=== PATIENT | female | born 1985 | race African-American/Black ===

== ENCOUNTER 2025-03-20 18:29 | Emergency (ER) | payer BC ==
[~2025-03-20] VITALS: Ht 167.6 cm; Wt 82.0 kg
[2025-03-20 18:32] VITALS: O2SAT 98
[2025-03-20 18:40] VITALS: BP 128/69; PULSE 99; RESP 18; TEMP 36.8; O2SAT 99
[2025-03-20 19:19] LABS: BASOPHILS % 1.0 % (0.0-2.0); EOSINOPHILS % 1.5 % (0.0-5.0); HEMATOCRIT. 37.5 % (36.0-48.0); HEMOGLOBIN. 12.4 g/dL (12.0-16.0); LYMPHOCYTES % 40.5 % (20.0-50.0); MEAN PLATELET VOLUME 7.2 fl (7.4-10.4); MONOCYTES % 5.6 % (2.0-8.0); NEUTROPHILS % 51.4 % (40.0-76.0); PLATELET 304 x1000/uL (130-400); RED BLOOD CELL COUNT 4.49 mill/uL (4.2-5.4); RED CELL DISTRIBUTION WIDTH 12.6 % (11.6-14.6)
[2025-03-20 19:28] LABS: CREATININE 0.8 mg/dL (0.6-1.0); UREA NITROGEN BLOOD 14 mg/dL (9-23)
[2025-03-20 19:29] LABS: TROPONIN I HIGH SENSITIVITY < 4 ng/L (3.0-34)
[2025-03-20 20:55] LABS: ASPARTATE AMINOTRANSFERASE 17 IU/L (<34); BILIRUBIN DIRECT < 0.1 mg/dL (<=3.0); BILIRUBIN TOTAL 0.4 mg/dL (0.1-1.0); HCG SCREEN NEGATIVE; PROTEIN TOTAL 8.1 g/dL (6.0-8.3)
[2025-03-20] MEDS: ACETAMINOPHEN 325MG TABLET PO ONE (21:00)
[2025-03-20] MEDS: METOCLOPRAMIDE HCL 10MG TABLET PO ONE (21:00)
[2025-03-20] MEDS: ONDANSETRON 4MG ODT PO ONE (21:00)
[2025-03-20] MEDS ORDERED: SUCR1TAB MT (21:13)
== END 2025-03-20 22:04 | disposition home or self-care (01) ==
LOC: ER 18:29
DX: R07.89 Other chest pain (principal); Z98.890 Other specified postprocedural states
CPT/HCPCS: 99285; 71045; 80076; 80048; 84703; 83690; 85025; 84484; 36415; 93005; J8597; Q0162